=== PATIENT | female | born 1935 | race Caucasian/White ===

== ENCOUNTER 2018-11-01 10:04 | Emergency (ER) | payer MEDICARE, BC ==
[~2018-11-01] VITALS: Ht 154.9 cm; Wt 101.6 kg
[~2018-11-01 10:04] MED LIST: FUROSEMIDE40 MG PO; LIPITOR20 MG PO; LOSARTAN POTAS100 MG PO; TOPROL XL25 MG PO; ULORIC80 MG PO
[2018-11-01 10:43] VITALS: BP 153/60
[2018-11-01] MEDS ORDERED: LOSARTAN POTAS100 MG PO (10:43)
== END 2018-11-01 10:46 | disposition home or self-care (01) ==
LOC: FSED 10:04
DX: R50.9 Fever, unspecified (principal); R05 Cough; J20.9 Acute bronchitis, unspecified; I25.2 Old myocardial infarction; Z95.5 Presence of coronary angioplasty implant and graft
CPT/HCPCS: 99282

== ENCOUNTER 2020-09-25 18:18 | Observation (INO) | payer MEDICARE, BC ==
[~2020-09-25] VITALS: Ht 154.9 cm; Wt 106.6 kg
[2020-09-25] MEDS ORDERED: ASPIRIN 325 MG TAB PO ONE (18:45)
[2020-09-25] MEDS ORDERED: ASPIRIN 325 MG TAB ONE (19:32)
[2020-09-25] MEDS ORDERED: ASPIRIN 81 MG CHEW TAB PO ONE ×2 (20:45→21:15)
[2020-09-25] MEDS ORDERED: SODIUM CHLORIDE FLUSH 10 ML SYR INJ PRN (21:15)
[2020-09-25] MEDS ORDERED: NITROGLYCERIN 0.4 MG SUBL SL PRN (21:15)
[2020-09-25 22:04] LABS: CREATINE KINASE MB 0.7 ng/mL (0-5.0)
[2020-09-26] VITALS (9 sets, daily range): BP systolic 100–128; BP diastolic 31–62
[2020-09-26 03:26] LABS: BASOPHILS % 0.4 % (0.0-1.0); EOSINOPHILS # (AUTO) 0.3 (0.0-0.4); EOSINOPHILS % 2.9 % (0.0-6.0); HEMATOCRIT 30.5 % (34.2-44.1); HEMOGLOBIN 9.9 g/dL (12.0-16.0); MEAN CORPUSCULAR HEMOGLOBIN 30.7 pg (28-32); MEAN CORPUSCULAR HGB CONC 32.5 g/dL (31-35); MEAN CORPUSCULAR VOLUME 94.4 fL (81-99); MONOCYTES % 11.2 % (4.4-11.3); NEUTROPHILS # (AUTO) 5.7 (2.1-6.9); NEUTROPHILS % 63.1 % (38.7-80.0); PLATELET COUNT 209 x10e3/uL (140-360); RED BLOOD COUNT 3.23 x10e6/uL (3.6-5.1); RED CELL DISTRIBUTION WIDTH 13.5 % (11.7-14.4)
[2020-09-26 03:30] LABS: INR 1.05; PROTHROMBIN TIME 14.3 seconds (11.9-14.5)
[2020-09-26 03:31] LABS: PARTIAL THROMBOPLASTIN TIME 36.3 seconds (23.8-35.5)
[2020-09-26 03:36] LABS: ANION GAP 15.1 mmol/L (8-16); CALCIUM 8.6 mg/dL (8.4-10.2); CREATININE, SERUM 1.55 mg/dL (0.57-1.11); POTASSIUM 4.1 mmol/L (3.5-5.1)
[2020-09-26 03:56] LABS: CREATINE KINASE MB 0.7 ng/mL (0-5.0)
[2020-09-26] MEDS ORDERED: PLAVIX75 MG PO (08:32)
[2020-09-26 10:29] LABS: CHOL/HDL RATIO 2.6 (3.0-3.6)
[2020-09-26 10:48] LABS: THYROID STIMULATING HORMONE 1.125 uIU/mL (0.350-4.940)
[2020-09-26] MEDS ORDERED: ASPIRIN EC81 MG PO (11:44)
[2020-09-26] MEDS ORDERED: CLOPIDOGREL BISULFATE 75 MG TAB PO ONE (12:00)
[2020-09-26 12:07] LABS: CREATINE KINASE MB 0.8 ng/mL (0-5.0)
[2020-09-26] MEDS ORDERED: METOPROLOL TARTRATE 25 MG TAB PO SCH ×2 (17:00)
[2020-09-26] MEDS ORDERED: ATORVASTATIN 40 MG TAB PO SCH (21:00)
[2020-09-27] VITALS: BP 104/49
[2020-09-27 04:00] VITALS: BP 97/52
[2020-09-27 07:44] VITALS: BP 100/52
[2020-09-27 07:55] VITALS: BP 100/52
[2020-09-27] MEDS ORDERED: ASPIRIN 81 MG ENTERIC COATED PO SCH (09:00)
[2020-09-27] MEDS ORDERED: METOPROLOL TARTRATE 25 MG TAB PO SCH (09:00)
[2020-09-27] MEDS ORDERED: CLOPIDOGREL BISULFATE 75 MG TAB PO SCH (09:00)
== END 2020-09-27 11:57 | disposition home or self-care (01) ==
LOC: FSED 18:22 → ERHOLD 21:15 → MED/SURG3 22:21
DX: I25.10 Atherosclerotic heart disease of native coronary artery without angina pectoris (principal); E66.01 Morbid (severe) obesity due to excess calories; Z68.41 Body mass index [BMI] 40.0-44.9, adult; Z20.822 Contact with and (suspected) exposure to COVID-19; M25.512 Pain in left shoulder; M25.511 Pain in right shoulder
CPT/HCPCS: 36415 ×2; 71046; 80048; 80053; 80061; 82550 ×2; 82553 ×2; 83880; 84443; 84484 ×2; 85025 ×2; 85379; 85610; 85730; 87086; 93005; 99284; G0378 ×3; U0002

== ENCOUNTER 2020-11-04 14:12 | Emergency (ER) | payer OTHER, MEDICARE, BC ==
[~2020-11-04] VITALS: Ht 154.9 cm; Wt 106.6 kg
== END 2020-11-04 18:52 | disposition left against medical advice (07) ==
LOC: ER 15:55
DX: M25.512 Pain in left shoulder (principal); W18.30XA Fall on same level, unspecified, initial encounter; Y92.238 Other place in hospital as the place of occurrence of the external cause; I10 Essential (primary) hypertension; E78.5 Hyperlipidemia, unspecified; M10.9 Gout, unspecified; I25.2 Old myocardial infarction; Z95.5 Presence of coronary angioplasty implant and graft
CPT/HCPCS: 70450; 72125

== ENCOUNTER → 2020-11-04 | Outpatient (CLI) | payer MEDICARE, BC ==
[~2020-11-04] MED LIST changes: +ASPIRIN EC81 MG PO; +MACROBID 100 M100 MG PO; +PLAVIX75 MG PO
== END ==
LOC: US 12:52
PROVIDERS: ATTEND Urology
DX: N18.9 Chronic kidney disease, unspecified (principal)
CPT/HCPCS: 74018; 76770; 76857

== ENCOUNTER 2022-01-15 15:46 | Inpatient (IN) | payer MEDICARE, BC ==
[~2022-01-15] VITALS: Ht 154.9 cm; Wt 104.3 kg
[2022-01-15] MEDS ORDERED: SODIUM CHLORIDE 0.9% 1000ML 1,000 ML IV SCH (17:30)
[2022-01-15] MEDS ORDERED: SODIUM CHLORIDE 0.9% 1000ML 1,000 ML ONE (17:39)
[2022-01-15] MEDS ORDERED: ASPIRIN 81 MG CHEW TAB PO ONE (20:15)
[2022-01-15] MEDS ORDERED: ONDANSETRON HCL INJ 2MG/ML 2ML 2 MG/ML VIAL IV PRN (20:15)
[2022-01-15] MEDS ORDERED: SODIUM CHLORIDE FLUSH 10 ML SYR INJ PRN (20:15)
[2022-01-15 22:00] VITALS: BP 119/62
[2022-01-15 22:35] VITALS: BP 119/62
[2022-01-16] VITALS (7 sets, daily range): BP systolic 114–141; BP diastolic 47–74
[2022-01-16] MEDS ORDERED: ALLOPURINOL100 MG PO (02:30)
[2022-01-16] MEDS ORDERED: ZINC PO (02:30)
[2022-01-16] MEDS ORDERED: CRANBERRY425 MG (02:30)
[2022-01-16] MEDS ORDERED: CRANBERRY465 MG PO (02:30)
[2022-01-16] MEDS ORDERED: ASCORBIC ACID500 M2 PO (02:30)
[2022-01-16] MEDS ORDERED: METOPROLOL SUCC25 MG PO (02:30)
[2022-01-16] MEDS ORDERED: ZYRTEC10 MG (02:30)
[2022-01-16] MEDS ORDERED: MULTI-VITAMIN1 EACH PO (02:30)
[2022-01-16] MEDS ORDERED: MINOCYCLINE HCL50 MG PO (02:30)
[2022-01-16 06:34] LABS: BASOPHILS % 0.5 % (0.0-1.0); EOSINOPHILS # (AUTO) 0.2 (0.0-0.4); EOSINOPHILS % 2.2 % (0.0-6.0); HEMATOCRIT 35.2 % (34.2-44.1); HEMOGLOBIN 11.1 g/dL (12.0-16.0); LYMPHOCYTES # (AUTO) 1.7 (1.0-3.2); MEAN CORPUSCULAR HEMOGLOBIN 30.9 pg (28-32); MEAN CORPUSCULAR HGB CONC 31.5 g/dL (31-35); MEAN CORPUSCULAR VOLUME 98.1 fL (81-99); MONOCYTES # (AUTO) 0.7 (0.2-0.8); MONOCYTES % 8.4 % (4.4-11.3); NEUTROPHILS # (AUTO) 5.9 (2.1-6.9); NEUTROPHILS % 68.7 % (38.7-80.0); PLATELET COUNT 212 x10e3/uL (140-360); RED BLOOD COUNT 3.59 x10e6/uL (3.6-5.1); RED CELL DISTRIBUTION WIDTH 14.2 % (11.7-14.4)
[2022-01-16 07:09] LABS: ALBUMIN 2.8 g/dL (3.5-5.0); ALBUMIN/GLOBULIN RATIO 0.9 (0.8-2.0); CREATININE, SERUM 1.04 mg/dL (0.57-1.11)
[2022-01-16 07:21] LABS: CREATINE KINASE 58 IU/L (29-168)
[2022-01-16] MEDS ORDERED: SODIUM CHLORIDE 0.45% 1,000 ML IV ONE (09:15)
[2022-01-16] MEDS ORDERED: DOCUSATE SODIUM 100 MG CAP PO PRN (09:15)
[2022-01-16] MEDS: MULTIVITAMINS/MINERALS TAB PO SCH (10:43)
[2022-01-16] MEDS: METOPROLOL SUCCINATE 25 MG TAB XL PO SCH (10:43)
[2022-01-16] MEDS: ASPIRIN 81 MG ENTERIC COATED PO SCH (10:43)
[2022-01-16] MEDS: ASCORBIC ACID 500 MG TAB PO SCH (10:44)
[2022-01-16 15:39] LABS: CREATINE KINASE 62 IU/L (29-168)
[2022-01-16] MEDS ORDERED: ATORVASTATIN 40 MG TAB PO SCH (21:00)
[2022-01-17] VITALS: BP 117/48
[2022-01-17 04:00] VITALS: BP 109/48
[2022-01-17 06:57] LABS: BASOPHILS # (AUTO) 0.1 (0.0-0.1); BASOPHILS % 0.6 % (0.0-1.0); EOSINOPHILS # (AUTO) 0.2 (0.0-0.4); EOSINOPHILS % 2.4 % (0.0-6.0); HEMATOCRIT 34.5 % (34.2-44.1); MEAN CORPUSCULAR HGB CONC 31.9 g/dL (31-35); MEAN CORPUSCULAR VOLUME 97.2 fL (81-99); MONOCYTES # (AUTO) 0.8 (0.2-0.8); MONOCYTES % 9.3 % (4.4-11.3); NEUTROPHILS # (AUTO) 5.9 (2.1-6.9); NEUTROPHILS % 65.3 % (38.7-80.0); PLATELET COUNT 208 x10e3/uL (140-360); RED BLOOD COUNT 3.55 x10e6/uL (3.6-5.1); RED CELL DISTRIBUTION WIDTH 14.5 % (11.7-14.4)
[2022-01-17 07:32] LABS: CALCIUM 8.4 mg/dL (8.4-10.2); CREATININE, SERUM 1.07 mg/dL (0.57-1.11); MAGNESIUM 1.9 MG/DL (1.3-2.1)
[2022-01-17 07:54] VITALS: BP 109/48
[2022-01-17 08:09] VITALS: BP 121/45
[2022-01-17] MEDS ORDERED: ONDANSETRON HCL 4 MG ORAL DISINTEGRATING TAB PO PRN (08:15)
[2022-01-17] MEDS ORDERED: ALLOPURINOL 100 MG TAB PO SCH (09:00)
[2022-01-17 10:04] LABS: CREATINE KINASE 60 IU/L (29-168)
[2022-01-17] MEDS: MULTIVITAMINS/MINERALS TAB PO SCH (11:23)
[2022-01-17] MEDS: ASPIRIN 81 MG ENTERIC COATED PO SCH (11:23)
[2022-01-17] MEDS: METOPROLOL SUCCINATE 25 MG TAB XL PO SCH (11:23)
[2022-01-17] MEDS: ASCORBIC ACID 500 MG TAB PO SCH (11:23)
[2022-01-17 11:29] VITALS: BP 111/59
== END 2022-01-17 14:07 | disposition home or self-care (01) | DRG 178 ==
LOC: FSED 16:04 → ERHOLD 20:08 → MED/SURG2 21:58
PROVIDERS: ADMIT Internal Medicine; ATTEND Internal Medicine
DX: U07.1 COVID-19 (principal); N17.9 Acute kidney failure, unspecified; Z94.0 Kidney transplant status; Z68.41 Body mass index [BMI] 40.0-44.9, adult; R55 Syncope and collapse; E78.5 Hyperlipidemia, unspecified; I12.9 Hypertensive chronic kidney disease with stage 1 through stage 4 chronic kidney disease, or unspecified chronic kidney disease; N18.30 Chronic kidney disease, stage 3 unspecified; I25.10 Atherosclerotic heart disease of native coronary artery without angina pectoris; E66.01 Morbid (severe) obesity due to excess calories; M10.9 Gout, unspecified; I25.2 Old myocardial infarction; Z95.5 Presence of coronary angioplasty implant and graft; Z87.440 Personal history of urinary (tract) infections; Z88.1 Allergy status to other antibiotic agents; Z88.2 Allergy status to sulfonamides; Z88.8 Allergy status to other drugs, medicaments and biological substances
CPT/HCPCS: 36415; 70450; 71250; 80048; 80053; 81003; 82550; 82553; 83735; 84484; 85025; 93005; 99284; J7030